=== PATIENT | male | born 1955 | race Caucasian/White ===

== ENCOUNTER 2016-07-07 18:16 | Emergency (ER) | payer BC ==
[2016-07-07 18:36] VITALS: BP 142/90
--- NOTE | 2016-07-07 18:54 | UC ---
Palpitation/Dysrhythmia HP - HPI Summary HPI Summary: ONSET OF HEART PALPITATIONS TODAY WHILE HE WAS HERDING A GOAT. IS VISITING [facility] FROM [place] AND STAYING WITH DR. FELIPE. HE REPORTS HE HAS HAD AN UNDIAGNOSED ARRHYTHMIA FOR A YEAR AND A HALF BEING WORKED-UP BY HIS PCP. DR FELIPE SUSPECTED AFIB AND BROUGHT HIM HERE FOR AN EKG. (HE STATES HIS OFFICE WAS CLOSED OTHERWISE HE WOULD HAVE DONE IT THERE). DENIES CP, SOB, FEVER, NUMBNESS, DIZZINESS, NAUSEA, SWEATS. - History of Current Complaint Chief Complaint: UCCardiac Stated Complaint: CHEST PAIN Time Seen by Provider: 07/07/16 18:25 Hx Obtained From: Patient, Family/[place] - DR. BRANDON FELIPE Onset/Duration: Sudden Onset, Lasting Hours, Still Present Timing: Constant Severity Initially: Moderate Severity Currently: Moderate Pain Intensity: 0 Pain Scale Used: 0-10 Numeric Character: Fast, Irregular Aggravating Factor(s): Nothing Alleviating Factor(s): Nothing Associated Signs & Symptoms: Positive: Negative - Allergy/Home Medications Allergies/Adverse Reactions: Allergies Allergy/AdvReac Type Severity Reaction Status Date / Time No Known Allergies Allergy Verified 07/07/16 18:23 Home Medications: Home Medications Aspirin [Aspirin 81 MG TAB] 07/07/16 [History] Lansoprazole [Prevacid] 30 mg PO 07/07/16 [History] Misc Natural Products [Saw Leon] 2 cap 07/07/16 [History] PMH/Surg Hx/FS Hx/Imm Hx Cardiovascular History Of: Denies: Cardiac Disorders - not yet dx GI/ History Of: Reports: Gastroesophageal Reflux - Surgical History Surgical History: Yes Surgery Procedure, Year, and Place: knee surgery. t&a 2013 - Family History Known Family History: Positive: Cardiac Disease, Hypertension - Social History Alcohol Use: Weekly Alcohol Amount: 4-5 pints beer per week Substance Use Type: None Smoking Status (MU): Never Smoked Tobacco Review of Systems Constitutional: Fatigue Respiratory: Negative Cardiovascular: Palpitations Gastrointestinal: Negative All Other Systems Reviewed And Are Negative: Yes Physical Exam Triage Information Reviewed: Yes Appearance: Well-Appearing, No Pain Distress, Well-Nourished Vital Signs: Initial Vital Signs Temp 96.4 F 07/07/16 18:25 Pulse 120 07/07/16 18:25 Resp 20 07/07/16 18:25 BP 142/90 07/07/16 18:25 Pulse Ox 98 07/07/16 18:25 Vital Signs Reviewed: Yes Eyes: Positive: Conjunctiva Clear ENT: Positive: Hearing grossly normal Neck: Positive: Supple Respiratory Exam: Normal Cardiovascular: Positive: Other: - IRREGULARLY IRREGULAR Abdomen Description: Positive: Soft Musculoskeletal: Positive: No Edema Neurological: Positive: Alert Psychological: Positive: Age Appropriate Behavior Skin: Negative: rashes Diagnostics - EKG Cardiac Rate: Tachycardia - 120 BPM Cardiac Rhythm: AFib: Old - LONGSTANDING KNOWN ARRHYTHMIA ST Segment: Normal Palpitations Course/Dx - Course Course Of Treatment: DISCUSSED DIAGNOSIS OF AFIB WITH RVR AND INCREASED RISK OF STROKE AND HEART FAILURE IF UNTREATED. PT REPORTS HE HAS HAD THIS FOR A YEAR AND A HALF AND IS IN THE PROCESS OF EVALUATION BY HIS PCP BACK HOME IN [place]. IS CURRENTLY VISITING [facility] AND STAYING WITH DR. FELIPE (ACCOMPANYING PT TODAY) WHO WANTED HIM TO HAVE AN EKG TO CONFIRM AFIB AND HE WILL BE ASSUMING CARE OF MR. MOREL IMMEDIATELY AT DISCHARGE. PT DECLINES TRANSFER TO THE ER DESPITE RISKS STATED ABOVE AND PREFERS TO BE TREATED BY DR. FELIPE AN OUTPATIENT. DR. FELIPE PRESENT DURING THE ENTIRE ENCOUNTER AND AGREES WITH PT DECISION TO BE DISCHARGED UNDER HIS CARE. - Differential Dx/Diagnosis Provider Diagnoses: AFIB WITH RVR Discharge - Discharge Plan Condition: Stable Disposition: HOME Patient Education Materials: A-fib (Atrial Fibrillation) (ED) Referrals: Brandon Felipe MD [Medical Doctor] - 1 Day Additional Instructions: GIVEN YOUR LONGSTANDING HISTORY OF ARRHYTHMIA AND DEFINITE IMMEDIATE FOLLOW-UP WITH DR. FELIPE WE WILL DISCHARGE YOU HOME UNDER HIS CARE. GO TO ER WITHOUT FAIL IF YOU DEVELOP CHEST PAIN, SHORTNESS OF BREATH, NAUSEA, SWEATS, DIZZINESS OR ANY OTHER CONCERNING SYMPTOMS.
== END 2016-07-07 18:50 | disposition home or self-care (01) ==
LOC: UCEAST 18:16
DX: I48.91 Unspecified atrial fibrillation (principal); K21.9 Gastro-esophageal reflux disease without esophagitis; I49.9 Cardiac arrhythmia, unspecified; Z79.82 Long term (current) use of aspirin
CPT/HCPCS: 99201; G0463